=== PATIENT | female | born 1955 | race American Indian/Alaskan Native ===

== ENCOUNTER 2017-03-11 08:40 | Emergency (ER) | payer MEDICAID ==
[2017-03-11 08:43] VITALS: BMI 39.9
[2017-03-11 08:44] VITALS: TEMP 98.9
[2017-03-11] MEDS ORDERED: Morphine 4 MG/ML VIAL ONE (09:28)
--- NOTE | 2017-03-11 09:53 | C.PDOC ---
History Of Present Illness 61-year-old female, presents to the emergency department with complaints of lower back pain x4 days. Patient states that four days ago, she was sitting in an office chair, and slipped off, causing her to land on buttocks and develop pain. Patient is s/p lumbar spinal fusion surgery on 11/16/16 in [place]. States she ran out of her Oxycodone one month ago. Patient notes tingling, that is shooting down her leg. Denies anysnesory changes, abdominal pain, urinary retention or bladder/bowel incontinence. No other complaints at this time. Time Seen by Provider: 03/11/17 09:01 Chief Complaint (Nursing): Back Pain History Per: Patient History/Exam Limitations: no limitations Onset/Duration Of Symptoms: Days Current Symptoms Are (Timing): Still Present Past Medical History Reviewed: Historical Data, Nursing Documentation, Vital Signs Vital Signs: Last Vital Signs Temp 98.9 F 03/11/17 08:43 Pulse 64 03/11/17 10:00 Resp 20 03/11/17 10:00 BP 135/91 H 03/11/17 10:00 Pulse Ox 100 03/11/17 10:00 - Medical History PMH: Back Problems Family History: States: No Known Family Hx - Social History Hx Alcohol Use: Yes Hx Substance Use: No - Immunization History Hx Tetanus Toxoid Vaccination: No Hx Influenza Vaccination: Yes (08/2016) Hx Pneumococcal Vaccination: No Review Of Systems Except As Marked, All Systems Reviewed And Found Negative. Constitutional: Negative for: Fever Cardiovascular: Negative for: Chest Pain Respiratory: Negative for: Shortness of Breath Gastrointestinal: Negative for: Vomiting Musculoskeletal: Positive for: Back Pain Neurological: Negative for: Weakness, Numbness Physical Exam - Physical Exam Appears: Non-toxic, No Acute Distress Skin: Warm, Dry, No Rash Head: Atraumatic, Normacephalic Eye(s): bilateral: Normal Inspection Nose: Normal Oral Mucosa: Moist Lips: Normal Appearing Neck: Normal ROM Cardiovascular: Rhythm Regular, No Murmur Respiratory: Normal Breath Sounds, No Accessory Muscle Use Back: Other (well-healed surgical scar to lumbar spine) Extremity: Normal ROM Neurological/Psych: Oriented x3, Normal Speech ED Course And Treatment O2 Sat by Pulse Oximetry: 97 Progress Note: XR ordered and reviewed. Hardware intact. No acute findings. Patient given Morphine injection for pain. Medical Decision Making Medical Decision Making: [place] Rx reviewed - patient has no Rxs for narcotics in [place], and has not been seen previously in [facility] for same. Visiting from [place], will give short course Vicodin. Patient made aware of our ED pain/narcotic policy. Disposition Counseled Patient/Family Regarding: Studies Performed, Diagnosis, Need For Followup, Rx Given - Disposition Referrals: [facility] [Outside] [facility] [Outside] Disposition: HOME/ ROUTINE Disposition Time: 10:00 Condition: STABLE Additional Instructions: FOLLOW UP WITH YOUR SURGEON WITHIN 1 WEEK USE PAIN MEDICATION NEEDED RETURN TO ER IF SYMPTOMS WORSEN Prescriptions: Hydrocodone/Acetaminophen [Hydrocodon-Acetaminophen 5-325] 1 each PO Q6 PRN #12 tablet PRN Reason: Pain, Moderate (4-7) Instructions: Acute Low Back Pain (ED) Print Language: BRITISH - POA Present On Arrival: None - Clinical Impression Clinical Impression: Low back strain, Chronic prescription opiate use - Scribe Statement The provider has reviewed the documentation as recorded by the Scribe (Wang Roach) All medical record entries made by the Scribe were at my direction and personally dictated by me. I have reviewed the chart and agree that the record accurately reflects my personal performance of the history, physical exam, medical decision making, and the department course for this patient. I have also personally directed, reviewed, and agree with the discharge instructions and disposition.
[2017-03-11 10:05] VITALS: BP 135/91; PULSE 64; RESP 20
[2017-03-11 10:44] VITALS: O2SAT 97
--- NOTE | 2017-03-11 13:37 | RAD ---
Lumbar spine four views History: Back pain. Comparison: None available. Findings: Spinal hardware with pedicle screws seen extending from the L4 through S1 vertebral bodies. Prominent disc space narrowing with endplate sclerosis and anterior osteophytosis with posterior disc osteophyte complex at the L5-S1 level. Loss of height of the inferior endplate of the L5 vertebral body level. Narrowing of the T11-12 level with endplate sclerosis and osteophytosis. Mild loss of height of the superior endplate of the T12 vertebral body. Correlation with MRI may be helpful if clinically indicated. Impression: Postsurgical and degenerative changes as described above.
--- NOTE | 2017-03-13 09:07 | CARD ---
APPROVED REPORT EKG Measurement Heart [id number] <Conclusion> Sinus bradycardia Minimal voltage criteria for LVH, may be normal variant Nonspecific T wave abnormality Abnormal ECG
== END 2017-03-11 10:45 | disposition home or self-care (01) ==
LOC: C.ER 08:40
DX: S39.012A Strain of muscle, fascia and tendon of lower back, initial encounter (principal); W07.XXXA Fall from chair, initial encounter; Y93.89 Activity, other specified; Y92.89 Other specified places as the place of occurrence of the external cause; Y99.8 Other external cause status; F11.90 Opioid use, unspecified, uncomplicated; Z98.890 Other specified postprocedural states
CPT/HCPCS: 72100; 96372; 99285; J2270